=== PATIENT | male | born 1955 | race Caucasian/White ===

== ENCOUNTER → 2019-02-03 | Outpatient (CLI) | payer OTHER ==
[2019-02-03 16:42] LABS: Basophils % (A) 1 %; Eosinophils # (A) 0.2 k/uL (0-0.7); Eosinophils % (A) 2 %; HCT 46.6 % (39.0-53.0); HGB 14.7 gm/dL (13.0-17.5); Lymphocytes # (A) 1.6 k/uL (1.0-4.8); Lymphocytes % (A) 19 %; MCH 25.9 pg (25.0-35.0); MCHC 31.4 g/dL (31.0-37.0); MCV 82.3 fL (80.0-100.0); Mean Platelet Volume 6.8; Monocytes # (A) 0.4 k/uL (0-1.0); Monocytes % (A) 5 %; Neutrophils % (A) 72 %; Platelet Count 297 k/uL (150-450); RBC 5.66 m/uL (4.30-5.90); WBC 8.4 k/uL (3.8-10.6)
[2019-02-03 17:00] LABS: ALT 21 U/L (21-72); AST 30 U/L (17-59); African American GFR (CKD) >90 (>60 ml/min/1.73 sqM); Albumin 4.2 g/dL (3.5-5.0); Alkaline Phosphatase 69 U/L (38-126); Anion Gap 9 mmol/L; Blood Urea Nitrogen 18 mg/dL (9-20); Calcium 9.8 mg/dL (8.4-10.2); Carbon Dioxide 23 mmol/L (22-30); Chloride 107 mmol/L (98-107); Glucose 136 mg/dL (74-99); Potassium 3.9 mmol/L (3.5-5.1); Sodium 139 mmol/L (137-145); Total Bilirubin 0.5 mg/dL (0.2-1.3); Total Protein 7.4 g/dL (6.3-8.2)
[2019-02-03 18:02] LABS: Appearance,Urine Clear (Clear); Bacteria,Urine Rare /hpf; Bilirubin,Urine Negative (Negative); Blood,Urine Moderate (Negative); Color,Urine Light Yellow; Glucose,Urine (UA) Negative (Negative); Ketones,Urine Negative (Negative); Leukocyte Esterase,Urine Moderate (Negative); Mucus,Urine Rare /hpf; Nitrite,Urine Negative (Negative); PH, Urine 5.5 (5.0-8.0); Protein,Urine 1+ (Negative); RBC,Urine 42 /hpf (0-5); Specific Gravity,Urine 1.014 (1.001-1.035); Urobilinogen,Urine <2.0 mg/dL (<2.0); WBC,Urine 24 /hpf (0-5)
== END | disposition home or self-care (01) ==
LOC: LABPAT 15:58
PROVIDERS: ATTEND Urology
DX: Z01.818 Encounter for other preprocedural examination (principal); N20.0 Calculus of kidney; R31.29 Other microscopic hematuria; I10 Essential (primary) hypertension
CPT/HCPCS: 80053; 81001; 85025; 87086; 93005

== ENCOUNTER 2019-02-10 09:17 | Observation (INO) | payer OTHER ==
--- NOTE | 2019-02-09 13:04 | P.GSHP ---
History of Present Illness H&P Date: 02/09/19 63 yo male from [place] with bilateral renal stones. Right renal pelvic stone that is large, >2cm Comes for a pcnl right Alternatives, risks and complications have been discussed. - Respiratory Respiratory: Reports wheezing - Genitourinary (Male) Comment: eswl 1984 Past Medical History Past Medical History: Hypertension, Osteoarthritis (OA) Additional Past Medical History / Comment(s): SVT, SARCOIDOSIS , KIDNEY STONES History of Any Multi-Drug Resistant Organisms: None Reported Past Surgical History: Tonsillectomy Additional Past Surgical History / Comment(s): LEFT PERCUTANEOUS NEPHROSTOLITHOTOMY , BIOPSY OF LESION WITH REMOVAL Past Anesthesia/Blood Transfusion Reactions: No Reported Reaction Smoking Status: Former smoker - Past Family History Father Family Medical History: Cancer Additional Family Medical History / Comment(s): SKIN AND BLADDER CANCER Medications and Allergies Home Medications Medication Instructions Recorded Confirmed Type Diltiazem HCl [Diltiazem ER] 180 mg PO HS 02/05/19 02/05/19 History Docusate [Colace] 100 mg PO DAILY 02/05/19 02/05/19 History Fluticasone/Salmeterol [Advair 1 inhalation PO BID 02/05/19 02/05/19 History 500-50 Diskus] Loratadine [Claritin] 10 mg PO DAILY 02/05/19 02/05/19 History Montelukast [Singulair] 10 mg PO HS 02/05/19 02/05/19 History Allergies Allergy/AdvReac Type Severity Reaction Status Date / Time Iodinated Contrast- Oral and Allergy Itching, Verified 02/05/19 10:06 IV Dye SHORTNESS OF BREATH Surgical - Exam - General well developed, well nourished, no distress - Eyes PERRL - ENT no hearing loss - Neck trachea midline - Respiratory normal expansion, normal respiratory effort - Cardiovascular Rhythm: regular - Abdomen Abdomen: soft, non tender - Genitourinary normal penis with no external lesions, testicles present - Rectum Rectum: no tenderness - Integumentary no rash, no growths - Neurologic normal coordination - Musculoskeletal normal gait, normal posture - Psychiatric oriented to time, oriented to person, oriented to place, speech is normal, mem ory intact Results - Imaging CT scan - abdomen: report reviewed, image reviewed CT scan - pelvis: report reviewed, image reviewed Assessment and Plan Assessment: Impression: RIght renal stone large Plan: PCNL right
[~2019-02-10 09:17] MED LIST: LIDOCAINE 1% 20 ML VIAL (10MG/ML) FOR IV START INTRADERMA PRN; ONDANSETRON 4 MG/2 ML VIAL IVP ONE
--- NOTE | 2019-02-10 09:59 | XR ---
KUB HISTORY: Kidney stones KUB submitted on 3 images Large calcification in the region of the right renal pelvis measures approximately 2.7 cm. Fragmented calcification overlying the left kidney shows at least 2 large stones each measuring approximately 1 2 mm, multiple smaller calcifications are present, at least 10-15 additional calcifications. Multiple calcifications are present within the pelvis which may be vascular. There is no evident bowel obstru ction or pneumoperitoneum. Bone mineralization is normal. Lung bases are clear. IMPRESSION: Bilateral nephrolithiasis.
[2019-02-10] MEDS: LACTATED RINGERS 1,000 ML IV SCH (10:27)
[2019-02-10] MEDS: DEXAMETHASONE SOD PHOSPHATE 10 MG/ML 1 ML VIAL IV ONE ×2 (10:31→16:20)
[2019-02-10] MEDS ORDERED: fentaNYL (PF) 50 MCG/ML 2 ML AMP IV ONE (12:33)
[2019-02-10] MEDS ORDERED: SUCCINYLCHOLINE CHLORIDE 100 MG/5 ML SYR IV ONE (12:46)
[2019-02-10] MEDS ORDERED: MIDAZOLAM 2 MG/2 ML VIAL ONE (12:46)
[2019-02-10] MEDS ORDERED: LIDOCAINE 1% INJ 10MG/ML (20 ML MDV) ONE (12:46)
[2019-02-10] MEDS ORDERED: ROCURONIUM BROMIDE 10 MG/ML 10 ML VIAL IV ONE (12:46)
[2019-02-10] MEDS ORDERED: NEOSTIGMINE 1 MG/ML 10 ML VIAL ONE (12:46)
[2019-02-10] MEDS ORDERED: PROPOFOL 10 MG/ML 20 ML VIAL IV ONE (12:46)
[2019-02-10] MEDS ORDERED: GLYCOPYRROLATE 0.2 MG/ML 2 ML VIAL ONE (12:46)
[2019-02-10] MEDS ORDERED: fentaNYL (PF) 50 MCG/ML 2 ML AMP ONE (12:46)
[2019-02-10] MEDS ORDERED: IOPAMIDOL-370 50ML BTL MISCELLANE ONE (13:18)
[2019-02-10] MEDS ORDERED: LACTATED RINGERS 1,000 ML IV ONE (13:54)
[2019-02-10] MEDS ORDERED: MAG HYDROX/AL HYDROX/SIMETH 30 ML CUP PO PRN (14:03)
[2019-02-10] MEDS ORDERED: ACETAMINOPHEN TAB 325 MG TAB PO PRN (14:03)
[2019-02-10] MEDS ORDERED: ONDANSETRON 4 MG/2 ML VIAL IVP PRN (14:03)
[2019-02-10] MEDS ORDERED: HYDROMORPHONE (PF) 10 MG in SODIUM CHLORIDE 0.9% 49 ML IV PRN (14:04)
[2019-02-10] MEDS ORDERED: NALOXONE 0.4 MG/ML 1 ML VIAL IV PRN (14:04)
--- NOTE | 2019-02-10 14:09 | P.OP ---
Date of Procedure: 02/10/19 Preoperative Diagnosis: Right renal stone, large Postoperative Diagnosis: Same Procedure(s) Performed: Cystoscopy placement of occluding balloon catheter right, percutaneous nephrostomy (Dr. yun) percutaneous nephrostolithotomy with ultrasound, placement of 10 J nephrostomy Anesthesia: KRISTINE Surgeon: Miguel Rangel Estimated Blood Loss (ml): 200 Pathology: other (Stone) Condition: stable Disposition: PACU Indications for Procedure: The patient is 63. He has a 2-1/2 cm right renal pelvic stone with pain and obstruction. He comes for percutaneous nephrostolithotomy Description of Procedure: The patient is brought to the operating suite. On the transport gurney he is given a successful general endotracheal anesthesia. He's placed in a frog position with a sterile prep and drape. Rolls were placed underneath his hip. Cystoscopy a Foroblique lens and 21 2-Ethiopian sheath is performed the urethra is normal. The prostate is not obstructing. The right ureteral orifice is identified and intubated with a 5-Ethiopian occluding balloon catheter passed up into the renal pelvis. It is secured to a Adams catheter 16-Ethiopian, The patient is placed in a prone position with care to airways and extremities. Dr. Yun of radiology performed percutaneous access to a right lower pole posterior calyx. The tract is dilated to 30-Ethiopian. I then place a working sheath. I remove clot blood clot and see the large stone. With ultrasound it is broken into tiny pieces and suctioned out or grasp with grasping forceps. At the end of the procedure I see no remaining stone fluoroscopically. I looked throughout the collecting system which is medically inflamed. But there is no remaining stone. A 10 J nephrostomy tube was placed and secured to the skin with 2-0 silk. The working wires are removed. The patient's awakened and returned recovery room good condition. Blood loss is approximately 200 mL.
--- NOTE | 2019-02-10 14:17 | FL ---
EXAMINATION TYPE: FL Perc Nephrostomy New Access DATE OF EXAM: 02/10/2019 COMPARISON: NONE HISTORY: Right renal calculus Procedure had been discussed with the patient by Dr. Rangel, risks, benefits, alternatives, were dis cussed and any questions were answered. Informed consent was obtained. The patient was in a semipro ne position prepped and draped on the OR table in the usual sterile fashion. Utilizing a 15 cm lengt h Chiba needle a single pass was made into a lower pole posterior calyx under fluoroscopic guidance. An 0.018 guidewire is passed through the needle and there was placement of a 6-Montserratian catheter sheat h system. There was conversion to a 0.035 system was performed with passage of a guidewire into the ureter utilizing a directional catheter. A second safety wire was placed. Remaining portion of pro cedure performed by . Approximately 4 minutes and 26 seconds of fluoroscopy was provided. 0 images submitted. IMPRESSION: 1. Successful intraoperative right nephrostomy prior to nephrolithotomy.
[2019-02-10] MEDS: HYDROmorphone 0.5 MG/0.5 ML SYRINGE IVP PRN ×5 (14:25→16:18)
[2019-02-10] MEDS: DEXTROSE 5%-0.45% NACL 1,000 ML IV SCH (16:19)
[2019-02-10] MEDS: DILTIAZEM CD 180 MG CAP.ER.24H PO SCH (16:19)
[2019-02-10 17:20] VITALS: BMI 34.2
[2019-02-10] MEDS ORDERED: HYDROcodone/APAP 5-325MG 1 EACH TAB PO PRN (18:23)
[2019-02-10] MEDS: SYMBICORT 160-4.5 MCG INHALER INHALATION SCH (20:42)
[2019-02-10] MEDS: MONTELUKAST 10 MG TAB PO SCH (20:59)
[2019-02-11] MEDS: LACTATED RINGERS 1,000 ML IV SCH (02:26)
[2019-02-11] MEDS: DEXTROSE 5%-0.45% NACL 1,000 ML IV SCH ×3 (02:27→20:39)
--- NOTE | 2019-02-11 07:02 | P.DS ---
Providers Date of admission: 02/10/19 21:21 Attending physician: Miguel Rangel Primary care physician: [facility] Course: The patient underwent a percutaneous nephrostolithotomy [id number] he had some pain in the evening but it subsided. The urine is clearing. His diet has been tolerated. He will ambulate. If his pain is under control he'll be discharged home later today. He'll follow-up in the office next week for catheter removal. Postoperative instructions been given. His condition is good. Patient Condition at Discharge: Good Plan - Discharge Summary Discharge Rx Participant: Yes New Discharge Prescriptions: New HYDROcodone/APAP 5-325MG [Lincoln 5-325] 1 tab PO Q4HR PRN #10 tab PRN Reason: Pain Control No Action Montelukast [Singulair] 10 mg PO HS Diltiazem HCl [Diltiazem ER] 180 mg PO HS Fluticasone/Salmeterol [Advair 500-50 Diskus] 1 inhalation PO BID Loratadine [Claritin] 10 mg PO DAILY Docusate [Colace] 100 mg PO DAILY Discharge Medication List Diltiazem HCl [Diltiazem ER] 180 mg PO HS 02/05/19 [History] Docusate [Colace] 100 mg PO DAILY 02/05/19 [History] Fluticasone/Salmeterol [Advair 500-50 Diskus] 1 inhalation PO BID 02/05/19 [History] Loratadine [Claritin] 10 mg PO DAILY 02/05/19 [History] Montelukast [Singulair] 10 mg PO HS 02/05/19 [History] HYDROcodone/APAP 5-325MG [Lincoln 5-325] 1 tab PO Q4HR PRN #10 tab 02/11/19 [Rx] Follow up Appointment(s)/Referral(s): Miguel Rangel MD [STAFF PHYSICIAN] - 02/15/19 Discharge Disposition: HOME SELF-CARE
[2019-02-11] MEDS: SYMBICORT 160-4.5 MCG INHALER INHALATION SCH ×2 (07:22→19:52)
[2019-02-11] MEDS: LORATADINE 10 MG TAB PO SCH (09:48)
[2019-02-11] MEDS: DOCUSATE 100 MG CAP PO SCH (09:48)
[2019-02-11] MEDS: HYDROcodone/APAP 5-325MG 1 EACH TAB PO PRN ×3 (11:47→22:24)
[2019-02-11] MEDS: MONTELUKAST 10 MG TAB PO SCH (20:38)
[2019-02-11] MEDS: DILTIAZEM CD 180 MG CAP.ER.24H PO SCH (20:38)
[2019-02-12] MEDS: LACTATED RINGERS 1,000 ML IV SCH (01:21)
[2019-02-12] MEDS: HYDROcodone/APAP 5-325MG 1 EACH TAB PO PRN (02:21)
[2019-02-12] MEDS: DEXTROSE 5%-0.45% NACL 1,000 ML IV SCH (06:24)
[2019-02-12 07:43] VITALS: BP 136/75; PULSE 79; RESP 14; TEMP 98
[2019-02-12] MEDS: SYMBICORT 160-4.5 MCG INHALER INHALATION SCH (08:06)
[2019-02-12] MEDS: LORATADINE 10 MG TAB PO SCH (09:31)
[2019-02-12] MEDS: DOCUSATE 100 MG CAP PO SCH (09:31)
== END 2019-02-12 10:30 | disposition home or self-care (01) ==
LOC: OR 09:17 → 4SSUR 13:54 → OR 21:21 → 4SSUR 21:21
PROVIDERS: ADMIT Urology; ATTEND Urology
DX: N20.0 Calculus of kidney (principal); R06.2 Wheezing; I10 Essential (primary) hypertension; M19.90 Unspecified osteoarthritis, unspecified site; D86.9 Sarcoidosis, unspecified; I47.1 Supraventricular tachycardia; Z87.891 Personal history of nicotine dependence; Z87.442 Personal history of urinary calculi; Z80.52 Family history of malignant neoplasm of bladder; Z80.8 Family history of malignant neoplasm of other organs or systems; Z79.51 Long term (current) use of inhaled steroids; Z79.899 Other long term (current) drug therapy; Z91.041 Radiographic dye allergy status
CPT/HCPCS: 86900; 86901; 86850; 82365; 50432; 74018; 50081; G0378 ×3; C1769 ×5; C2628; C1729 ×3; C1894; J2250; J2710; J2405; J0690; J2001; J3010; J0330; J2704; J1170 ×2; Q9967

== ENCOUNTER → 2022-12-12 | Outpatient (CLI) | payer OTHER ==
--- NOTE | 2022-12-12 10:34 | XR ---
EXAMINATION TYPE: XR KUB DATE OF EXAM: 12/12/2022 HISTORY: Pain Comparison: None.Single KUB is submitted for interpretation. Findings: Right renal calculi: Previously noted right-sided renal calculus measuring 2.6 cm is no longer visibl e. Right ureteral calculi: None Visualized. Left renal calculi: 1.3 cm left renal calculus. Additional 1.9 cm calculus overlies the left upper q uadrant as well as adjacent smaller calculi also seen previously. Left ureteral calculi: None Visualized. Pelvic calcifications: There are phleboliths within the pelvis. Bowel gas pattern is unremarkable. No free air. No mass effects. IMPRESSION: 1. As above
== END | disposition home or self-care (01) ==
LOC: RADXRMAIN 10:09
PROVIDERS: ATTEND Urology
DX: N20.0 Calculus of kidney (principal)
CPT/HCPCS: 74018

== ENCOUNTER → 2023-04-03 | Outpatient (CLI) | payer MEDICARE, OTHER ==
--- NOTE | 2023-04-03 12:14 | CT ---
EXAMINATION TYPE: CT abdomen pelvis wo con CT DLP: 991 mGycm, Automated exposure control for dose reduction was used. DATE OF EXAM: 04/03/2023 11:54 AM COMPARISON: KUB radiograph 12/12/2022 CLINICAL INDICATION:Male, 67 years old with history of R310 N200; TECHNIQUE: Standard CT of the abdomen and pelvis without IV or oral contrast. Lack of IV or oral co ntrast limits evaluation of solid and hollow organ viscera. Coronal and sagittal reformats were perfo rmed. FINDINGS: LOWER CHEST: Bilateral lower lobe bronchiectasis. Atelectasis within the lingula. Fat-containing left posterior Bochdalek hernia. ABDOMEN LIVER: Right hepatic lobe 1.2 cm cyst. GALLBLADDER AND BILE DUCTS: Unremarkable noncontrast appearance PANCREAS: Unremarkable noncontrast appearance SPLEEN: Unremarkable noncontrast appearance ADRENAL GLANDS: Unremarkable noncontrast appearance. KIDNEYS AND URETERS: Mild to moderate left hydroureteronephrosis with an obstructing 1.1 x 0.7 cm yadi culus in the distal third ureter. Left periureteral fat identified. Nonobstructive left superior pole calculi measuring up to 9 mm. There are approximately 5 calculi in the superior pole of the left kid mukund. No right renal calculi. No right-sided hydronephrosis. Nonspecific bilateral perinephric fat str anding.Exophytic right mid kidney hyperdense lesion not consistent with a simple cyst measuring 1.5 c m. Additional left mid kidney exophytic medial 1.8 cm cyst. PELVIS BLADDER: Unremarkable REPRODUCTIVE: Coarse calcifications of the prostate gland are identified. ABDOMEN & PELVIS STOMACH AND BOWEL: Stomach and duodenum are unremarkable. No focal bowel wall thickening or surroundi ng inflammatory changes. The appendix is within normal limits. No evidence of bowel obstruction. PERITONEUM: No evidence of pneumoperitoneum or free fluid. VASCULATURE: No evidence of aortic aneurysm. MUSCULOSKELETAL: No acute osseous abnormalities. Mild disc degeneration changes are present throughou t the thoracolumbar spine. LYMPH NODES: No gross evidence for lymphadenopathy. Nonenlarged left lower quadrant lymph node identi fied. SOFT TISSUE/ABDOMINAL WALL: Bilateral fat filled inguinal hernias. IMPRESSION: 1. Mild to moderate left hydroureteronephrosis with an obstructing 1.1 x 0.7 cm calculus in the dist al third left ureter. 2. Nonobstructive left renal calculi. 3. Right mid kidney exophytic 1.5 cm hyperdense lesion. This may represent a proteinaceous/hemorrhagi c cyst versus malignancy. Further evaluation with CT or MR abdomen (renal mass protocol) is recommend ed for further characterization.
== END | disposition home or self-care (01) ==
LOC: RADCTMAIN 11:31
PROVIDERS: ATTEND Urology
DX: N13.2 Hydronephrosis with renal and ureteral calculous obstruction (principal); R31.0 Gross hematuria; N28.89 Other specified disorders of kidney and ureter
CPT/HCPCS: 74176

== ENCOUNTER → 2023-04-24 | Outpatient (CLI) | payer MEDICARE, OTHER ==
[2023-04-24 10:24] LABS: Appearance,Urine Clear (Clear); Bacteria,Urine Rare /hpf; Bilirubin,Urine Negative (Negative); Blood,Urine Large (Negative); Color,Urine Light Yellow; Glucose,Urine (UA) Negative (Negative); Ketones,Urine Negative (Negative); Leukocyte Esterase,Urine Trace (Negative); Mucus,Urine Rare /hpf; Nitrite,Urine Negative (Negative); Protein,Urine Negative (Negative); RBC,Urine >182 /hpf (0-5); Specific Gravity,Urine 1.008 (1.001-1.035); Urobilinogen,Urine <2.0 mg/dL (<2.0); WBC,Urine 3 /hpf (0-5)
[2023-04-24 15:23] LABS: Blood Urea Nitrogen 16.1 mg/dL (9.0-27.0); Calcium 10.2 mg/dL (8.7-10.3); Carbon Dioxide 25.6 mmol/L (21.6-31.8); Chloride 107 mmol/L (96-109); Glucose 90 mg/dL (70-110); Potassium 4.9 mmol/L (3.5-5.5); Sodium 143 mmol/L (135-145)
[2023-04-24 17:57] LABS: Basophils # (A) 0.05 X 10*3/uL (0.00-0.10); Basophils % (A) 0.6 %; Eosinophils # (A) 0.18 X 10*3/uL (0.04-0.35); Eosinophils % (A) 2.1 %; HCT 45.7 % (39.6-50.0); HGB 14.5 d/dL (13.0-17.0); Lymphocytes # (A) 1.78 X 10*3/uL (0.90-5.00); Lymphocytes % (A) 20.5 %; MCH 27.7 pg (27.0-32.0); MCHC 31.7 d/dL (32.0-37.0); MCV 87.2 FL (80.0-97.0); Monocytes % (A) 9.2 %; NRBC Per 100 WBC 0 X 10*3/uL (0.00-0.01); Neutrophils # (A) 5.84 X 10*3/uL (1.80-7.70); Neutrophils % (A) 67.3 %; Platelet Count 338 X 10*3/uL (140-440); RBC 5.24 X 10*6/uL (4.40-5.60); RDW 15.2 % (11.5-14.5); WBC 8.68 X 10*3/uL (4.50-10.00)
== END | disposition home or self-care (01) ==
LOC: LABWHC1 08:10
PROVIDERS: ATTEND Urology
DX: Z01.812 Encounter for preprocedural laboratory examination (principal); N20.1 Calculus of ureter; R31.0 Gross hematuria
CPT/HCPCS: 36415; 80048; 81001; 85025; 87086

== ENCOUNTER 2023-04-30 08:36 | Day surgery (SDC) | payer MEDICARE, OTHER ==
[2023-04-24 11:43] VITALS: BMI 34.2
--- NOTE | 2023-04-29 12:56 | P.GSHP ---
History of Present Illness H&P Date: 04/29/23 67-year-old male with a history of stones. He has a large left ureteral stone as well as a left upper pole collection of stones. The left distal ureteral stone at about 8-9 mm causing pain and obstruction. He comes for left ureteroscopy laser lithotripsy. - Constitutional Constitutional: Denies chills, Denies fever - EENT Eyes: denies blurred vision, denies pain Ears, nose, mouth and throat: Denies headache, Denies sore throat - Cardiovascular Cardiovascular: Denies chest pain, Denies shortness of breath - Respiratory Respiratory: Denies cough, Denies 7 - Gastrointestinal Gastrointestinal: Denies abdominal pain, Denies diarrhea, Denies nausea, Denies vomiting - Genitourinary (Female) Genitourinary: Denies dysuria, Denies hematuria - Genitourinary (Male) Genitourinary: Denies dysuria, Denies hematuria - Musculoskeletal Musculoskeletal: Denies myalgias - Integumentary Integumentary: Denies pruritus, Denies rash - Neurological Neurological: Denies numbness, Denies weakness - Psychiatric Psychiatric: Denies anxiety, Denies depression - Endocrine Endocrine: Denies fatigue, Denies weight change Past Medical History Past Medical History: Hypertension, Osteoarthritis (OA) Additional Past Medical History / Comment(s): SVT IN THE PAST (CURED WITH ABLATION), SARCOIDOSIS , KIDNEY STONES History of Any Multi-Drug Resistant Organisms: None Reported Past Surgical History: Cardiac Ablation, Tonsillectomy Additional Past Surgical History / Comment(s): LEFT PERCUTANEOUS NEPHROSTOLITHOTOMY , BIOPSY OF LESION WITH REMOVAL Past Anesthesia/Blood Transfusion Reactions: No Reported Reaction Past Psychological History: No Psychological Hx Reported Smoking Status: Former smoker Past Alcohol Use History: Rare Additional Past Alcohol Use History / Comment(s): STARTED SMOKING AT AGE 20 QUIT AT AGE 21 Past Drug Use History: None Reported - Past Family History Father Family Medical History: Cancer Additional Family Medical History / Comment(s): SKIN AND BLADDER CANCER Medications and Allergies Home Medications Medication Instructions Recorded Confirmed Type Loratadine [Claritin] 10 mg PO DAILY 02/05/19 04/24/23 History Montelukast [Singulair] 10 mg PO HS 02/05/19 04/24/23 History Aspirin [Adult Low Dose Aspirin EC] 81 mg PO DAILY 04/24/23 04/24/23 History Fluticasone Propion/Salmeterol 1 puff INHALATION BID 04/24/23 04/24/23 History [Advair 500-50 Diskus] Multivitamins, Thera [Multivitamin 1 tab PO DAILY 04/24/23 04/24/23 History (formulary)] amLODIPine [Norvasc] 5 mg PO DAILY 04/24/23 04/24/23 History Allergies Allergy/AdvReac Type Severity Reaction Status Date / Time Iodinated Contrast Media Allergy Itching, Verified 04/24/23 11:34 [Iodinated Contrast- Oral SHORTNESS and IV Dye] OF BREATH Surgical - Exam - General well developed, well nourished, no distress - Eyes normal ocular movement, no icteric - ENT no hearing loss, no congestion - Neck no masses, trachea midline - Respiratory normal respiratory effort, clear to auscultation - Abdomen Abdomen: soft, non tender, no guarding, no rigid, no rebound - Integumentary no rash, no abnormal pigmentation - Neurologic no disoriented, no combative - Psychiatric oriented to time, oriented to person, oriented to place, speech is normal, memory intact Results - Imaging Abdominal x-ray: report reviewed, image reviewed CT scan - abdomen: report reviewed, image reviewed CT scan - pelvis: report reviewed, image reviewed Assessment and Plan Assessment: Impression: Left ureteral calculus with pain and obstruction. Left renal calculus Recommendations: The patient will undergo left ureteroscopy laser lithotripsy to remove the ureteral calculus. The renal calculus will be dealt with at a later time if necessary.
[2023-04-30] MEDS ORDERED: LIDOCAINE 1% (10MG/ML) FOR IV START INTRADERMA PRN (09:01)
[2023-04-30] MEDS ORDERED: LACTATED RINGERS 1,000 ML IV SCH (09:01)
[2023-04-30] MEDS ORDERED: ONDANSETRON 4 MG/2 ML VIAL IVP ONE (09:01)
[2023-04-30] MEDS ORDERED: droPERidol 5 MG/2 ML VIAL IVP ONE (09:01)
[2023-04-30] MEDS ORDERED: HYDROmorphone 0.5 MG/0.5 ML SYRINGE IVP PRN (09:01)
--- NOTE | 2023-04-30 09:08 | XR ---
EXAMINATION TYPE: XR KUB DATE OF EXAM: 04/30/2023 9:01 AM CLINICAL HISTORY: Left ureteral stone TECHNIQUE: Supine KUB image of the abdomen is obtained with 2 radiographs. COMPARISON: KUB 12/12/2022, CT abdomen pelvis 04/03/2023. FINDINGS: Scattered gas is seen in non-distended small bowel loops. Gas and fecal material is seen in non-distended colon. Redemonstration of multiple grouped calcifications within the superior pole the left kidney measuring up to 1.3 cm. Additionally 1.3 cm calculus has migrated inferiorly to the uret erovesical junction. No definitive right renal calculi identified. Multiple pelvic phleboliths redemo nstrated. IMPRESSION: 1. Further advancement of 1.3 cm left renal calculus to the ureterovesical junction. 2. Left renal calculi redemonstrated.
[2023-04-30] MEDS ORDERED: DEXAMETHASONE SOD PHOSPHATE 4 MG/ML 1 ML VIAL IV ONE (09:33)
[2023-04-30] MEDS ORDERED: LIDOCAINE 2% INJ 20 MG/ML (2 ML VIAL) ONE (10:12)
[2023-04-30] MEDS ORDERED: SUCCINYLCHOLINE CHLORIDE 200 MG/10 ML VIAL IV ONE (10:12)
[2023-04-30] MEDS ORDERED: PROPOFOL 10 MG/ML 20 ML VIAL IV ONE (10:12)
[2023-04-30] MEDS ORDERED: fentaNYL (PF) 50 MCG/ML 2 ML AMP ONE (10:12)
[2023-04-30] MEDS ORDERED: MIDAZOLAM 2 MG/2 ML VIAL ONE (10:12)
--- NOTE | 2023-04-30 11:11 | P.OP ---
Date of Procedure: 04/30/23 Preoperative Diagnosis: Left ureteral calculus Postoperative Diagnosis: Same Procedure(s) Performed: Cystoscopy, left ureteroscopy with laser lithotripsy, placement of 626 stent Anesthesia: RENEEA Surgeon: Miguel Rangel Estimated Blood Loss (ml): 0 Pathology: other (Stone) Condition: stable Disposition: PACU Indications for Procedure: Patient is 67. He is a 12 mm left distal ureteral stone causing obstruction. He comes for ureteroscopy and laser laser lithotripsy on the left Description of Procedure: Patient brought to the operating suite. Given general anesthesia. Placed lithotomy position with sterile prep and drape. Cystoscopy Foroblique lens and 21-Korean sheath identifies a normal anterior urethra. The prostate shows lateral lobe obstruction but the middle lobe has been previously opened. The bladder wall shows trabeculation. Both ureteral orifices are normal. I passed the semirigid scope to the left ureteral orifice and passed up to this left distal ureteral stone. With the 3 and 65 laser probe and it was of energy the stone was broken into tiny pieces and flushed out of the ureter. There is no remaining stone. There is a fair amount of edema where the stone lodged thus a stent will be placed. I removed the ureteroscope. I reintroduced the cystoscope. Through the left ureteral orifice is passed a 035 wire up into the kidney. Over the wires and passed a 6 x 26 stent the coils in the renal pelvis and the bladder the bladder is drained. Stone fragments were collected and sent to pathology. The patient is awakened and returned recovery in good condition. Blood loss is minimal.
[2023-04-30 11:22] VITALS: TEMP 97
--- NOTE | 2023-04-30 11:29 | FL ---
Intraoperative/procedural fluoroscopic services were provided left renal stone with left ureteral rubina nt placement. Total fluoroscopy time is 6 seconds with a total of 1 submitted image to PACS. Total DA P [id number] mGym2. Please see the operative note for further details.
[2023-04-30 12:25] VITALS: RESP 14
[2023-04-30 12:39] VITALS: BP 138/71; PULSE 48
== END 2023-04-30 13:15 | disposition home or self-care (01) ==
LOC: OR 08:36
PROVIDERS: ATTEND Urology
DX: N20.2 Calculus of kidney with calculus of ureter (principal); I10 Essential (primary) hypertension; M19.90 Unspecified osteoarthritis, unspecified site; Z87.442 Personal history of urinary calculi; Z87.891 Personal history of nicotine dependence; F10.90 Alcohol use, unspecified, uncomplicated; Z79.82 Long term (current) use of aspirin; Z79.51 Long term (current) use of inhaled steroids; Z79.899 Other long term (current) drug therapy; Z98.890 Other specified postprocedural states; Z91.041 Radiographic dye allergy status; Z88.8 Allergy status to other drugs, medicaments and biological substances
CPT/HCPCS: 52356; 82365; 74018; C2625; C1769; J2250; J0330; J1100; J0690; J2405; J3010; J2704; J2001

== ENCOUNTER → 2023-07-21 | Outpatient (CLI) | payer MEDICARE, OTHER ==
--- NOTE | 2023-07-21 11:49 | XR ---
EXAMINATION TYPE: XR KUB DATE OF EXAM: 07/21/2023 HISTORY: Pain Comparison: 04/30/2023 Single KUB is submitted for interpretation. Findings: Right renal calculi: None Visualized. Right ureteral calculi: None Visualized. Left renal calculi: Multiple left-sided renal calculi seen the largest noted within the mid to upper pole measuring 1.3 cm and a and adjacent calculus measuring 9 mm. Left ureteral calculi: Previously noted distal left ureteral calculus is no longer visible. Pelvic calcifications: None Visualized. Bowel gas pattern is unremarkable. No free air. No mass effects. IMPRESSION: 1. Left-sided nephrolithiasis.
== END | disposition home or self-care (01) ==
LOC: RADXRMAIN 10:54
PROVIDERS: ATTEND Urology
DX: N20.0 Calculus of kidney (principal)
CPT/HCPCS: 74018

== ENCOUNTER 2023-08-09 13:56 | Emergency (ER) | payer MEDICARE, OTHER ==
--- NOTE | 2023-08-09 14:19 | ED ---
URI HPI - General Source: patient, family, RN notes reviewed Mode of arrival: ambulatory Limitations: no limitations <Juan Paniagua - Last Filed: 08/09/23 14:19> - General Source: patient, RN notes reviewed Mode of arrival: ambulatory Limitations: no limitations - History of Present Illness MD Complaint: cough, rhinorrhea, nasal congestion <Kamila Mills - Last Filed: 08/10/23 06:59> - General Chief Complaint: Upper Respiratory Infection Stated Complaint: covid+ Time Seen by Provider: 08/09/23 14:19 - History of Present Illness Initial Comments: Patient is a 68-year-old male presented ER with chief complaint of positive Covid test. This is a sats of positive for Covid this morning. Patient endorses cough congestion and mild chills. Denies SOB of fevers. (Juan Paniagua) This is a 68-year-old male who presents to the emergency department for a positive Covid test. For the last couple of days he has had congestion, nasal drainage, and a mild cough. Denies any chest pain or shortness of breath. This morning he had a positive Covid test. Reports a history of sarcoidosis, and inquired about antiviral treatment. He tried to reach his primary care provider, however because it was the weekend he was unable to reach someone at the office to inquire about medication management. (Kamila Mills) - Related Data Home Medications Medication Instructions Recorded Confirmed Loratadine [Claritin] 10 mg PO DAILY 02/05/19 04/30/23 Montelukast [Singulair] 10 mg PO HS 02/05/19 04/30/23 Aspirin [Adult Low Dose Aspirin EC] 81 mg PO DAILY 04/24/23 04/30/23 Fluticasone Propion/Salmeterol 1 puff INHALATION BID 04/24/23 04/30/23 [Advair 500-50 Diskus] Multivitamins, Thera [Multivitamin 1 tab PO DAILY 04/24/23 04/30/23 (formulary)] amLODIPine [Norvasc] 5 mg PO DAILY 04/24/23 04/30/23 Previous Rx's Medication Instructions Recorded Ketorolac [Toradol] 10 mg PO Q6HR PRN #10 tab 04/30/23 Nirmatrelvir/Ritonavir [Paxlovid 1 pack PO BID 5 Days #30 tab 08/09/23 300-100 mg Pack (Eua)] Allergies Allergy/AdvReac Type Severity Reaction Status Date / Time Iodinated Contrast Media Allergy Itching, Verified 04/30/23 09:14 [Iodinated Contrast- Oral SHORTNESS and IV Dye] OF BREATH Review of Systems ROS Other: All systems not noted in ROS Statement are negative. <Juan Paniagua - Last Filed: 08/09/23 14:19> ROS Other: All systems not noted in ROS Statement are negative. <Kamila Mills - Last Filed: 08/10/23 06:59> ROS Statement: Those systems with pertinent positive or pertinent negative responses have been documented in the HPI. Past Medical History Past Medical History: Hypertension Additional Past Medical History / Comment(s): SVT, SARCOIDOSIS , KIDNEY STONES. spinal stenosis History of Any Multi-Drug Resistant Organisms: None Reported Past Surgical History: Tonsillectomy Additional Past Surgical History / Comment(s): LEFT PERCUTANEOUS NEPHROSTOLITHOTOMY , BIOPSY OF LESION WITH REMOVAL Past Anesthesia/Blood Transfusion Reactions: No Reported Reaction Past Psychological History: No Psychological Hx Reported Smoking Status: Former smoker Past Alcohol Use History: Rare Past Drug Use History: None Reported - Past Family History Father Family Medical History: Cancer Additional Family Medical History / Comment(s): SKIN AND BLADDER CANCER <Juan Paniagua - Last Filed: 08/09/23 14:19> General Exam Limitations: no limitations <Juan Paniagua - Last Filed: 08/09/23 14:19> Limitations: no limitations General appearance: alert, in no apparent distress Head exam: Present: atraumatic, normocephalic, normal inspection Respiratory exam: Present: normal lung sounds bilaterally. Absent: respiratory distress, wheezes, rales, rhonchi, stridor Cardiovascular Exam: Present: regular rate, normal rhythm, normal heart sounds. Absent: systolic murmur, diastolic murmur, rubs, gallop, clicks Neurological exam: Present: alert, oriented X3, CN II-XII intact Psychiatric exam: Present: normal affect, normal mood Skin exam: Present: warm, dry, intact, normal color. Absent: rash <Kamila Mills - Last Filed: 08/10/23 06:59> - General Exam Comments Initial Comments: Visual Physical Exam Vital signs reviewed General: Well-appearing, nontoxic, no acute distress. Head: Normocephalic, atraumatic Eyes: PERRLA, EOMI ENT: Airway patent Chest: Nonlabored breathing Skin: No visual rash, normal skin tone Neuro: Alert and oriented 3 Musculoskeletal: No gross abnormalities (Juan Paniagua) Course Vital Signs 08/09/23 08/09/23 14:09 15:40 Temperature 98.1 F 98.2 F Pulse Rate 80 88 Respiratory 16 18 Rate Blood Pressure 155/86 152/78 O2 Sat by Pulse 95 96 Oximetry Medical Decision Making <Juan Paniagua - Last Filed: 08/09/23 14:19> - Radiology Data Radiology results: report reviewed, image reviewed <Kamila Mills - Last Filed: 08/10/23 06:59> - Medical Decision Making I performed the quick note portion of the exam. Electronically signed by Juan Paniagua PA-C (Juan Paniagua) This is a 68-year-old male who presents to the emergency department for a positive Covid test, coughing, and congestion. Was pt. sent in by a medical professional or institution? @ -No Did you speak to anyone other than the patient for history? @ -No Did you review nursing and triage notes? @ -Yes, and I agree, it is accurate with regards to the patient's symptoms. Were old charts reviewed? @ -No Differential Diagnosis? @ -Differential Cough: Influenza, Covid, RSV, croup, allergic rhinitis, GERD, pneumonia, bronchitis, COPD, viral pharyngitis, streptococcal pharyngitis, this is not meant to be an all-inclusive list. EKG interpreted by me (3pts min.)? @ -Not obtained X-rays interpreted by me (1pt min.)? @ -Chest x-ray obtained, my interpretation identifies no localized consolidations or infiltrates. CT interpreted by me (1pt min.)? @ -Not obtained U/S interpreted by me (1pt. min.)? @ -Not obtained What testing was considered but not performed? (CT, X-rays, U/S, labs)? Why? @ -None What meds were considered but not given? Why? @ -None Did you discuss the management of the patient with other professionals? @ -No Did you reconcile home meds? @ -No Was smoking cessation discussed for >3mins.? @ -No Was critical care preformed (if so, how long)? @ -No Were there social determinants of health that impacted care today? How? (Homelessness, low income, unemployed, alcoholism, drug addiction, transportation, low edu. Level, literacy, decrease access to med. care, shelter, rehab)? @ -No Was there de-escalation of care discussed even if they declined? (Discuss DNR or withdrawal of care, Hospice)? @ -No What co-morbidities impacted this encounter? (DM, HTN, Smoking, COPD, CAD, Cancer, CVA, Hep., AIDS, mental health diagnosis, sleep apnea, morbid obesity)? @ -Sarcoidosis, HTN Was patient admitted / discharged? @ -Discharged. Chest x-ray obtained revealing no acute process. Discussed with the patient the option of antiviral treatment, and he wishes to proceed. I'm in agreement with this, especially given his age and history of sarcoidosis. Prescription for Paxlovid provided with dosing instructions reviewed. Advised getting plenty of rest and continuing with supportive care. He is also instructed to quarantine for 5 days and practice extra precautions for an additional 5 days, including always wearing a mask around others and avoiding travel. Patient discharged home in stable condition. Undiagnosed new problem with uncertain prognosis? @ -None Drug Therapy requiring intensive monitoring for toxicity (Heparin, Nitro, Insulin, Cardizem)? @ -None Were any procedures done? @ -None Diagnosis/symptom? @ -COVID-19 Acute, or Chronic, or Acute on Chronic? @ -Acute Uncomplicated (without systemic symptoms) or Complicated (systemic symptoms)? @ -Uncomplicated Side effects of treatment? @ -None Exacerbation, Progression, or Severe Exacerbation] @ -Not applicable Poses a threat to life or bodily function? @ -No Return precautions reviewed in depth, the patient is instructed to return to the emergency department with any new, worsening, or concerning symptoms. Patient verbalized understanding. This case was discussed in detail with the attending ED physician, Dr. Reyna. Presentation, findings, and treatment plan discussed in detail as well. (Kamila Mills) Disposition <Juan Paniagua - Last Filed: 08/09/23 14:19> Is patient prescribed a controlled substance at d/c from ED?: No <Kamila Mills - Last Filed: 08/10/23 06:59> Clinical Impression: COVID-19 Disposition: HOME SELF-CARE Instructions (If sedation given, give patient instructions): COVID-19 (Coronavirus Disease 2019) (ED), How to Recover from COVID-19 at Home (ED) Additional Instructions: Return to the emergency department with any new, worsening, or concerning symptoms. Take the Paxlovid as prescribed for 5 days. Make sure that you are getting plenty of rest and continuing with symptomatic management. You are instructed to quarantine for 5 days and practice extra precautions for an additional 5 days, including always wearing a mask around others and avoiding travel. Prescriptions: Nirmatrelvir/Ritonavir [Paxlovid 300-100 mg Pack (Eua)] 1 pack PO BID 5 Days #30 tab Referrals: George Jerez MD [Primary Care Provider] - 1-2 days
--- NOTE | 2023-08-09 14:57 | XR ---
EXAMINATION TYPE: XR chest 2V DATE OF EXAM: 08/09/2023 COMPARISON: NONE HISTORY: Cough TECHNIQUE: Frontal and lateral views of the chest are obtained. FINDINGS: There is no focal air space opacity, pleural effusion, or pneumothorax seen. The cardiac silhouette size is within normal limits. The osseous structures are intact. IMPRESSION: No acute cardiopulmonary process.
[2023-08-09 15:47] VITALS: BP 152/78; PULSE 88; RESP 18; TEMP 98.2
== END 2023-08-09 15:41 | disposition home or self-care (01) ==
LOC: EC 13:56
DX: U07.1 COVID-19 (principal); I10 Essential (primary) hypertension; Z87.891 Personal history of nicotine dependence; Z91.041 Radiographic dye allergy status; Z79.82 Long term (current) use of aspirin; Z79.899 Other long term (current) drug therapy
CPT/HCPCS: 71046; 99283

== ENCOUNTER 2023-11-19 06:28 | Day surgery (SDC) | payer MEDICARE, OTHER ==
[2023-11-19] MEDS ORDERED: HYDROmorphone 0.5 MG/0.5 ML SYRINGE IVP PRN ×2 (07:00→10:31)
[2023-11-19] MEDS: LACTATED RINGERS 1,000 ML IV SCH (07:16)
[2023-11-19] MEDS: ONDANSETRON 4 MG/2 ML VIAL IVP ONE (07:23)
[2023-11-19] MEDS: DEXAMETHASONE SOD PHOSPHATE 4 MG/ML 1 ML VIAL IV ONE (07:23)
[2023-11-19] MEDS ORDERED: ROCURONIUM 10 MG/ML (5 ML VIAL) IV ONE (08:25)
[2023-11-19] MEDS ORDERED: GLYCOPYRROLATE 0.2 MG/ML 2 ML VIAL ONE (08:25)
[2023-11-19] MEDS ORDERED: SUCCINYLCHOLINE CHLORIDE 200 MG/10 ML VIAL IV ONE (08:25)
[2023-11-19] MEDS ORDERED: fentaNYL (PF) 50 MCG/ML 2 ML AMP ONE (08:25)
[2023-11-19] MEDS ORDERED: NEOSTIGMINE 1 MG/ML 10 ML VIAL ONE (08:25)
[2023-11-19] MEDS ORDERED: PROPOFOL 10 MG/ML 20 ML VIAL IV ONE (08:25)
[2023-11-19] MEDS ORDERED: LIDOCAINE 1% INJ 10MG/ML (20 ML MDV) ONE (08:25)
[2023-11-19] MEDS ORDERED: WATER FOR INJECTION, STERILE 10 ML VIAL IV ONE (08:25)
[2023-11-19] MEDS ORDERED: ePHEDrine 50 MG/ML 1 ML VIAL ONE (08:25)
[2023-11-19] MEDS: BUPIVACAINE (PF) 0.25% 30 ML VIAL SQ ONE (09:01)
[2023-11-19] MEDS: ceFAZolin 1,000 MG in SODIUM CHLORIDE 0.9% IRRIGATIO 1,000 ML IRRIGATION PRN (09:01)
[2023-11-19] MEDS: LIDOCAINE 2%-EPI 1:100,000 20 ML VIAL SQ ONE (09:01)
[2023-11-19] MEDS: methylPREDNISolone ACETATE 80 MG/ML 1 ML VIAL INJ ONE (09:14)
[2023-11-19] MEDS: THROMBIN (BOVINE) 5,000 UNIT VIAL TOPICAL ONE (09:15)
[2023-11-19] MEDS ORDERED: BENZOCAINE/MENTHOL LOZENG 1 EACH LOZENGE MUCOUS MEM PRN (10:31)
--- NOTE | 2023-11-19 10:35 | FL ---
EXAMINATION TYPE: FL guidance operating room, XR lumbar spine 2 or 3V DATE OF EXAM: 11/19/2023 Comparison: None Clinical History: 16-year-old male LUMBAR LAMINECTOMY Findings and impression: LUMBAR LAMINECTOMY. 2.5 SEC FL TIME & 0.[address] SETHI. 3 IMAGES SENT TO PACS
[2023-11-19] MEDS ORDERED: MAGNESIUM HYDROXIDE 2,400 MG/30 ML CUP PO PRN (10:39)
[2023-11-19] MEDS ORDERED: ONDANSETRON 4 MG/2 ML VIAL IVP PRN (10:39)
[2023-11-19] MEDS ORDERED: ACETAMINOPHEN TAB 500 MG TAB PO PRN (10:47)
[2023-11-19] MEDS ORDERED: IBUPROFEN 400 MG TAB PO PRN (10:47)
--- NOTE | 2023-11-19 10:56 | P.OP ---
Date of Procedure: 11/19/23 Preoperative Diagnosis: Severe spinal stenosis L3-4 L4-5, neurogenic location, facet arthrosis, lower extremity radiculopathy Postoperative Diagnosis: Same Anesthesia: GETA Pathology: none sent Condition: stable Disposition: PACU Description of Procedure: DESCRIPTION OF PROCEDURE(S): BRIEF OPERATIVE NOTE Preoperative Diagnosis: Severe spinal stenosis L3-4 L4-5, neurogenic location, facet arthrosis, lower extremity radiculopathy Postoperative Diagnosis: Same Procedure: Wide laminectomy and decompression bilaterally L3-4 L4-5 Bilateral foraminotomies L3-4 L4-5 and partial medial facetectomy Placement of interlaminar stabilization device L3-4 L4-5 Use of fluoroscopic guidance Surgeon: Dr. Noel Floriculture Professor: Dougie OMALLEY who is present throughout the entire the case persistence during positioning, dissection, exposure, visualization, and all crucial elements of the case as well as closure. Anesthesia: General anesthesia Estimated blood loss: Approximate 75 cc Complications: None apparent Components implanted: Paradigm Coflex interlaminar stabilization device x 2 1 measuring 10 mm 1 measuring 14 mm Disposition: To recovery room in good stable condition. OPERATIVE INDICATIONS The patient has been having issues in their lower back and lower extremities. The patient was having evidence of neurogenic claudication and spinal stenosis along with issues with lower extremity radiculopathy. He was having worsening symptoms which is causing him great difficulty with any prolonged walking or standing. This was affecting his daily activities and his time at home. The patient was found to have significant spinal stenosis which is quite severe at L3-4 and L4-5 which correlated well with their low back and lower extremity symptoms. The patient has been through conservative treatment. With their imaging, and the level of their stenosis and their propensity for the possibility of recurrent stenosis. We discussed possibility of decompression alone for decompression fusion and decompression with stabilization device. Patient has a number of issues with family that he is dealing with at home and was having great difficulty with his spine and lower extremities. I felt that decompression with intralaminar stabilization would be a good benefit for the patient. We discussed various treatment options including surgery, and the patient wishes to proceed with surgery We discussed the risk, patient's alternatives and benefits of surgery including but not limited to, risk of bleeding risk of infection, risk of need for further surgery, risk of decreased, loss of motion, loss of function, nerve damage, paralysis, heart attack, blindness and . OPERATIVE SUMMARY After discussing all the risks, patient alternatives and benefits at length, the patient elected to proceed with surgical intervention, signed informed consent, and presented for their procedure. The patient was seen and examined in the preoperative holding area and the surgical site was marked. The patient was given antibiotics and brought to the operating room. The patient was sedated and intubated by anesthesia in standard fashion. The patient was positioned on to the operating room table in a prone position on the appropriate frame which was well-padded and well molded. We were careful to pad any bony prominences and pressure points. We were careful to maintain the patient's cervical spine and good neutral alignment and position throughout. The patient was prepped and draped in a normal standard fashion. An appropriate timeout and keystone protocol performed. We were able to proceed with the surgery. Fluoroscopy was utilized to establish the appropriate level. The local wound area was infiltrated with local anesthetic. An incision was made at the midline longitudinally over the appropriate levels at L3-4 and 5. Dissection was taken down subcutaneously to the level of the fascia which was split midline. Dissection was taken over the lamina. Intraoperative fluoroscopy was taken which showed a marker at the appropriate level. With the appropriate level positively confirmed, we were able to proceed with laminectomy first at L4-5 and then at L3-4. The wound was copiously irrigated and suctioned dry as had been done periodically throughout the case. I performed a laminectomy with a combination of curettes and a high-speed bur and Kerrison rongeurs. A small medial facetectomy was performed again further access. This was done bilaterally at that level first at L4-5 and then at L3-4. A partial foraminotomy was also performed. Portions of the ligamentum flavum were taken down to expose the dura and traversing nerve root. I was able to mobilize the traversing nerve root and gain access to the disc space. There is no evidence of dural tear or leak. Good hemostasis maintained. The wound was copiously irrigated and suctioned dry. Good decompression was noted. At this point further prepared the interspinous process and interlaminar space with a combination of curettes and a high-speed bur and Kerrison rongeurs. As able get good parallel alignment at the interspinous process space and interlaminar space. I used a trial spacer for the Coflex device and have good fit and fill with the appropriate size device. I had to shave down the spinous process at to allow for appropriate positioning of the Coflex device. The device was prepared and then positioned and malleted in position with good alignment and good position and good bony purchase at the interlaminar space. The position was checked and found to be approximately 3 mm away from the dura without impingement on the dura itself. It was checked and found to be stable. I did this first at L4-5 and then similarly at L3-4. Intraoperative C-arm was utilized to confirm the alignment and position at the appropriate levels. We were able to proceed with closure. The fascia was closed for a watertight closure. The subcuticular tissue was closed with absorbable suture. The wound was cleaned and dried and dressed with the appropriate dressing. The drapes were broken down. The patient was gently rolled back onto their hospital bed being careful to maintain their cervical spine and good neutral alignment and position. They were woken up by anesthesia, extubated, and brought to the recovery room in good stable condition. The patient will be admitted to the hospital for observation and for appropriate postoperative care, medical management and monitoring. We will continue to follow them closely about the postoperative course.
[2023-11-19] MEDS: HYDROmorphone 0.5 MG/0.5 ML SYRINGE IVP ONE ×3 (11:06→11:28)
[2023-11-19] MEDS: CYCLOBENZAPRINE 10 MG TAB PO PRN (15:39)
[2023-11-19] MEDS: HYDROcodone/APAP 5-325MG 1 EACH TAB PO PRN (15:39)
[2023-11-19] MEDS: SODIUM CHLORIDE 0.9% 1,000 ML IV SCH (16:53)
[2023-11-19] MEDS: MONTELUKAST 10 MG TAB PO SCH (20:50)
[2023-11-19] MEDS: KETOROLAC 15 MG/ML 1 ML VIAL IVP PRN (20:58)
[2023-11-19] MEDS: SYMBICORT 160-4.5 MCG INHALER INHALATION SCH (21:00)
[2023-11-20 09:08] VITALS: BP 133/77; PULSE 65; RESP 18; TEMP 98.2
--- NOTE | 2023-11-20 09:32 | P.DS ---
Providers Date of admission: 11/19/23 Attending physician: Tanmay Noel Primary care physician: George Meri [place] [facility] Course: The patient presented on the day of admission as per their operative note. He had severe spinal stenosis with lower extreme radiculopathy and neurogenic claudication and underwent his laminectomy decompression with placement of interlaminar stabilizer as per his operative note yesterday. He feels he is doing very well today. He feels his legs are improved already. He has been up out of bed tolerating his regular diet and voiding freely. His pains been controlled with oral medications and muscle relaxers. Physical Exam The incision site is clean dry and intact. There is no erythema no drainage. There is no purulence no evidence of infection. There is no active drainage. The dressing is changed. The site appears to be healing appropriately Abdomen soft and nontender. Chest has good excursion with deep inspiration and expiration. The patient has active and passive range of motion intact at the upper and lower extremities. There is no acute change in neurologic status. He has sustained dorsiflexion plantarflexion EHL intact Hospital Course Postoperative day #1 status post laminectomy decompression L3-4 L4-5 with and placement of interlaminar stabilizer L3-4 L4-5 for his severe spinal stenosis with lower extreme radiculopathy and neurogenic claudication. The patient has been making good progress postoperatively. They have completed the prophylactic antibiotics without any signs or symptoms of infection. The patient has been able to advance their diet, and is tolerating diet adequately. The pain was initially controlled with IV medications and is now controlled appropriately with oral medications. The patient has been able to increase their mobilization. He feels that his back is doing well and he feels like his legs are already making some improvement since the surgery. The patient has progressed appropriately. I think they are in good stable condition for discharge today. They will be sent home with appropriate prescriptions. I answered their questions to the best of my ability in a language that they can understand and they are agreeable with the plan. They will follow up as directed in approximately 2 weeks or sooner if he is having any problems. Patient Condition at Discharge: Good Plan - Discharge Summary Discharge Rx Participant: Yes New Discharge Prescriptions: New HYDROcodone/APAP 5-325MG [[place] 5-325] 1 tab PO Q6HR PRN 7 Days #28 tab PRN Reason: Pain Cyclobenzaprine [Flexeril] 10 mg PO TID PRN #60 tab PRN Reason: Spasms No Action Montelukast [Singulair] 10 mg PO HS Loratadine [Claritin] 10 mg PO QAM Multivitamins, Thera [Multivitamin (formulary)] 1 tab PO DAILY amLODIPine [Norvasc] 5 mg PO QAM Aspirin [Adult Low Dose Aspirin EC] 81 mg PO QAM Acetaminophen Tab [Tylenol Tab] 1,000 mg PO Q6H PRN PRN Reason: Pain Fluticasone Propion/Salmeterol [Advair 500-50 Diskus] 1 puff INHALATION BID Ibuprofen [Advil] 400 mg PO Q8HR PRN PRN Reason: Pain Discharge Medication List Loratadine [Claritin] 10 mg PO QAM 02/05/19 [History] Montelukast [Singulair] 10 mg PO HS 02/05/19 [History] Aspirin [Adult Low Dose Aspirin EC] 81 mg PO QAM 04/24/23 [History] Fluticasone Propion/Salmeterol [Advair 500-50 Diskus] 1 puff INHALATION BID 04/24/23 [History] Multivitamins, Thera [Multivitamin (formulary)] 1 tab PO DAILY 04/24/23 [History] amLODIPine [Norvasc] 5 mg PO QAM 04/24/23 [History] Acetaminophen Tab [Tylenol Tab] 1,000 mg PO Q6H PRN 11/14/23 [History] Ibuprofen [Advil] 400 mg PO Q8HR PRN 11/14/23 [History] HYDROcodone/APAP 5-325MG [[place] 5-325] 1 tab PO Q6HR PRN 7 Days #28 tab 11/19/23 [Rx] Cyclobenzaprine [Flexeril] 10 mg PO TID PRN #60 tab 11/20/23 [Rx] Follow up Appointment(s)/Referral(s): Tanmay Noel DO [Doctor of Osteopathic Medicine] - 2 Weeks Activity/Diet/Wound Care/Special Instructions: Keep site clean. May shower with waterproof Tegaderm intact. Do not soak in a tub. After 72 hours postoperatively, patient May remove dressing and then may shower with area uncovered. Leave glue intact and allow it to fray off on its own. May ambulate as tolerated. Avoid heavy or rigorous activity. No repetitive bending twisting or lifting. No overhead work. Discharge Disposition: HOME SELF-CARE
[2023-11-20] MEDS: LORATADINE 10 MG TAB PO SCH (10:06)
[2023-11-20] MEDS: MULTIVITAMINS, THERA 1 EACH TAB PO SCH (10:06)
[2023-11-20] MEDS: amLODIPine 5 MG TAB PO SCH (10:06)
[2023-11-20] MEDS: ASPIRIN 81 MG PO SCH (10:06)
[2023-11-20] MEDS: SENNOSIDES-DOCUSATE SODIUM 1 EACH TAB PO SCH (10:06)
== END 2023-11-20 13:00 | disposition home or self-care (01) ==
LOC: OR 06:28 → 4SSUR 10:40 → OR 11-20 13:00
PROVIDERS: ATTEND Orthopaedic Surgery Orthopaedic Surgery of the Spine
DX: M48.061 Spinal stenosis, lumbar region without neurogenic claudication (principal); M47.26 Other spondylosis with radiculopathy, lumbar region; Z79.82 Long term (current) use of aspirin; Z79.899 Other long term (current) drug therapy
CPT/HCPCS: 94640 ×2; 97161; 86900; 86901; 86850; 72100; 63047; 63048; C1713; C1821; J1040; J0690 ×2; J2405; J1885; J1170; J0665